=== PATIENT | male | born 1940 | race Caucasian/White ===

== ENCOUNTER 2017-02-25 06:08 | Emergency (ER) | payer MEDICARE ==
[~2017-02-25] VITALS: Ht 177.8 cm; Wt 94.3 kg
[~2017-02-25 06:08] MED LIST: ALLEGRA180 MG PO; AMOXICILLIN500 MG PO; ASPIRIN EC325 MG PO; ASPIRIN EC81 MG PO; COREG3.125 MG PO; GUAIFENESIN-CO118 ML PO; HYDRALAZINE HCL50 MG PO; HYDROCHLOROTH12.5 MG PO; IMDUR30 MG PO; KLOR-CON M2020 MEQ PO; LASIX20 MG PO; LASIX40 MG PO; LIPITOR80 MG PO; NASONEX17 GM NS; NITROGLYCERIN0.4 MG SL; NORVASC10 MG PO; PLAVIX75 MG PO; SEPTRA DS TABL1 EACH PO; SPIRIVA18 MCG IH; VENTOLIN HFA18 GM INH; VITAMIN D2000 UNI1 PO; ZETIA10 MG PO
[2017-02-25] MEDS ORDERED: ELIQUIS5 MG PO (07:41)
[2017-02-25] MEDS ORDERED: ATENOLOL50 MG PO (07:42)
[2017-02-25] MEDS ORDERED: OMEPRAZOLE20 MG PO (07:46)
[2017-02-25] MEDS ORDERED: GLYCOLAX119 GM PO (07:47)
[2017-02-25] MEDS ORDERED: SPIRONOLACTONE25 MG PO (07:49)
[2017-02-25] MEDS ORDERED: MAGNESIUM OXID400 MG PO (07:49)
--- NOTE | 2017-02-25 20:40 | EKG ---
[facility] [address] [facility] [place] [address] Signed Sinus rhythm with frequent and consecutive premature ventricular complexes Incomplete right bundle branch block Prolonged QT Abnormal ECG No previous ECGs available Confirmed by AMILCAR SETH MD ([id number]) on 02/25/2017 8:40:12 PM Electronically Signed By: AMILCAR SETH MD 02/25/172039 PATIENT NAME: TARAH FOWLER KRISHNA Electrocardiogram DATE OF : 42 PHYSICIAN: AMILCAR SETH MD REPORT #: [id number] REPORT IS CONFIDENTIAL AND NOT TO BE RELEASED WITHOUT AUTHORIZATION
== END 2017-02-25 10:00 | disposition short-term general hospital (02) ==
LOC: ED 06:08
DX: I49.5 Sick sinus syndrome (principal); S05.11XA Contusion of eyeball and orbital tissues, right eye, initial encounter; E80.7 Disorder of bilirubin metabolism, unspecified; I25.2 Old myocardial infarction; I48.91 Unspecified atrial fibrillation; Z95.1 Presence of aortocoronary bypass graft; Z99.81 Dependence on supplemental oxygen; Z91.018 Allergy to other foods; Z91.048 Other nonmedicinal substance allergy status; Z79.899 Other long term (current) drug therapy; Z79.82 Long term (current) use of aspirin; X58.XXXA Exposure to other specified factors, initial encounter
CPT/HCPCS: 70450; 71020; 80053; 81001; 84484; 85025; 85610; 85730; 93005; 93010; 99291

== ENCOUNTER 2017-09-18 11:32 | Inpatient (IN) | payer MEDICARE ==
[~2017-09-18] VITALS: Ht 177.8 cm; Wt 89.4 kg
[~2017-09-18 11:32] MED LIST changes: +ALLEGRA ALLERG180 MG PO; -ALLEGRA180 MG PO; +ATENOLOL50 MG PO; +ELIQUIS5 MG PO; +GLYCOLAX119 GM PO; -LASIX20 MG PO; +MAGNESIUM OXID400 MG PO; +OMEPRAZOLE20 MG PO; +SPIRONOLACTONE25 MG PO
--- NOTE | 2017-09-18 12:35 | NUR ---
PATIENT ADMITTED TO CCU VIA WHEELCHAIR FROM DR. HELLER'S OFFICE A DIRECT ADMIT. PT ARRIVED AT 1150. PT HELPED TO UNDRESS INTO GOWN, AND HELPED INTO BED. PT'S ALIREZA IS AT BEDSIDE. PT'S VITALS ASSESSED AND SP02 NOTED TO BE LOW 83% ON ROOM AIR. PT DENIES SHORTNESS OF BREATH. PT REPORTS THAT HE USES OXYGEN AT HOME DURING THE NIGHT. 2 L NC ADDED AT THE TIME AND SP02 IS NOW 95%. LUNGS ARE CLEAR TO AUSCULTATION. DR. ORTEGA N OTIFIED OF PT'S ADMISSION AND ORDER REC'D TO START AN IV AND OBTAIN ORTHOSTATIC VITAL SIGNS. IV STARTED IN LEFT FOREARM WITHOUT DIFFICULTY. ORTHOSTATIC VS SHOWED A BP OF 112/54 (67) HR 69 WHILE RESTING FLAT. UPON STANDING, BP NOTED TO BE 89/49 (59) HR 70. AFTER 3 MINUTES, BP 99/48(56) HR 79. PT DENIES FEELING DIZZY AT THIS TIME BUT NOTES HE FELT DIZZY IN THE DR. HELLER'S OFFICE THIS AM. DR. ORTEGA NOW IN ROOM EVALUATING PATIENT.
[2017-09-18] MEDS ORDERED: ISOSORBIDE DINI30 MG PO (13:01)
[2017-09-18] MEDS ORDERED: METOLAZONE5 MG PO (13:02)
[2017-09-18] MEDS ORDERED: ISOSORBIDE MONO30 MG PO (13:04)
--- NOTE | 2017-09-18 14:08 | NUR ---
DR. ORTEGA AT BEDSIDE TO ASSESS PT FOR POSSIBLE SHINGLES
--- NOTE | 2017-09-18 15:32 | NUR ---
PATIENT'S VESICLES ON HIS RIGHT BUTTOCK ARE VERY SUSPICIOUS FOR SHINGLES, THEREFORE PATIENT PLACED IN AIRBORNE ISOLATION PRECAUTIONS. PATIENT AND UPDATED ON THIS.
--- NOTE | 2017-09-18 15:33 | NUR ---
RECORDS BEING OBTAINED FROM [facility] FROM LAST HOSPITALIZATION, LAST CARDIOLOGY NOTE, WELL LAST ECHO. PATIENT'S MED LIST ALSO REQUESTED FROM [facility].
--- NOTE | 2017-09-18 16:30 | NUR ---
PT VIEWED FROM OBSERVATION WINDOW AND NTED TO BE RESTING COMFOTABLY IN BED.
[2017-09-18] MEDS ORDERED: ATENOLOL100 MG PO (17:59)
--- NOTE | 2017-09-18 18:30 | NUR ---
PT ON AIRBORN PRECAUTIONS AT THIS TIME FOR SHINGLES. 500 ML BOLUS OF NS GIVEN AND NS WITH 40 MEQ OF POTASSIUM RUNNING AT 100 ML/HR. 20G LFA IV SITE WNL. PT SBA TO BEDSIDE URINAL, ASSISTED BACK TO BED, PT STATES HE FEELS INCREASED FATIGUE. SPO2 NOTED TO BE 97% ON 2 L NC, LUNGS CLEAR THROUGHOUT. HR 60-70'S, PACED, BP 80-90'S OVER 40-50. DENIES PAIN OR ANY OTHER COMPLAINTS. HOME MEDICATIONS NOTED ON BEDSIDE TABLE, DENIES USE, ADVISED TO NOT TAKE HOME MEDICATIONS AND TO HAVE ALL MEDICATION DISPENSED BY CARE POVIDERS, PT VERBALIZED UNDERSTANDING AND WAS AGREEABLE, PROVIDER AWARE.
[2017-09-18] MEDS ORDERED: CITRUCEL500 MG PO (19:00)
[2017-09-18] MEDS ORDERED: SENNA-DOCUSATE1 EAC1 PO (19:00)
--- NOTE | 2017-09-18 21:00 | NUR ---
ASSESSMENT COMPLETE. PT ATE PIECE LV CAKE, NO OTHER FOOD SINCE COMING TO CCU, STATES JUST NOT BEEN HUNGRY, "IF I EAT MORE, I WON'T BE ABLE TO SLEEP" HE STATED WHEN OFFERED FOOD. STOOD FOR ORTHOS' PER ORDER, TOLERATED WELL, DID HAVE SOME LIGHT HEADEDNESS WHEN GETTING TO A SITTING POSITION, BUT ONCE HE SAT FOR FEW SECONDS HE STATED IT WENT AWAY. OCCASSIONAL NON-PRODUCTIVE COUGH. OFFERED THE URINAL, LAST URINATED NEAR 1800, HE DENIED THE NEED. ANKLES WITH TRACE EDEMA, HE STATES THAT HE HAS LOST QUITE SOME AMOUNT OF WEIGHT WHEN THEY "GAVE ME THE WATER PILL". FRESH ICE WATER, CALL LIGHT WITHIN REACH. WILL NOTIFY DR ORTEGA WHEN LAB RESULTS COMPLETE.
--- NOTE | 2017-09-18 21:26 | NUR ---
NOTIFIED DR ORTEGA LAB RESULTS WERE AVAILABLE. HE WAS "PUTTING IN ORDERS".
--- NOTE | 2017-09-18 21:47 | NUR ---
ADM KCL PER ORDER. ENCOURAGED PT TO TRY TO URINATE, STOOD AT BEDSIDE, 250 OUT, SAT ON EDGE OF BED FOR FEW MIN, ENCOURAGED TO TAKE A FEW DEEP BREATHS, NO COUGHING AT THIS TIME.
--- NOTE | 2017-09-19 00:30 | NUR ---
WOKE PT FOR ASSESSMENT, PT WANTED TO USE THE URINAL. AFTER SITTING AT THE SIDE OF THE BED, HE THEN STOOD, UNABLE TO START STREAM RIGHT AWAY, ENDED UP VOIDING 175. OFFERED AND ACCEPTED WATER, THEN BACK TO BED. PT STATED, WHILE "I LIKE YOU", I REALLY WOULD RATHER BE HOME. GIVEN WARM BLANKETS, COVERED, WITH CALL LIGHT WITHIN REACH. NO OTHER NEEDS.
--- NOTE | 2017-09-19 00:52 | NUR ---
MD CALLED IN REGUARDS TO PT STATUS. MD ASKED ABOUT VITALS. UPDATED THAT BP HAS BEEN 95-100'S SYSTOLIC. PER MD PT IS DOING WELL ENOUGH TO TRANSFER TO [facility]. MD TO PLACE TRANSFER ORDERS. WILL CALL AND GET A BED FOR THE PATIENT ON [facility].
--- NOTE | 2017-09-19 01:30 | NUR ---
REPORT GIVEN TO ESTHER DASH FROM M/S. PT WAS TRANSFERED TO ROOM [address] ORTEGA. PT WAS NOTIFIED NEAR 0030 THAT HE WAS GOING TO BE TRANSFERED.
--- NOTE | 2017-09-19 02:02 | NUR ---
RECEIVED REPORT FROM CCU NURSE. PT TO FLOOR VIA STRETCHER. AIR BORN PRECAUTIONS.
--- NOTE | 2017-09-19 03:54 | NUR ---
ASSESSMETN CMPLETED. LUNGS CLEAR. TRACE EDEMA BLE. HEART SOUNDS IRREGULAR. 2L NC. PT OOB TO BATHROOM. VOIDED 200 ML. PT IS A/O. SHINGLES ON GLUTEAL APPEARS RED. REPORTS NO PAIN AT THIS TIME. CALL LIGHT WITHIN REACH.
--- NOTE | 2017-09-19 05:46 | NUR ---
CAME TO FLOOR AROUND 0200. PT HAD GOOD NIGHT. AIR BORN PRECAUTIONS D/T SHINGLES ON GLUTEAL AREA. VVS. 200ML OUTPUT THIS SHIFT. ORTHOSTATIS Q SHIFT.
--- NOTE | 2017-09-19 06:49 | NUR ---
PT FOUND ON THE TOILET. PULLD IV OUT OF ARM, TOOK GOWN OFF. CHANGED SHEETS, GOWN, ATTENDS, CLEANED BED AND FLOOR OF BLOOD. RESTARTED IV. PT BACK TO BED. ALARM IN PLACE. CALL LIGHT EDUCATION.
--- NOTE | 2017-09-19 08:50 | NUR ---
PT UPSET ABOUT BREAKFAST BEING DELIVERED COLD. IV POLE NOT PLUGGED IN. LOW BATTERY ALARMING. PLUGGED IV POLE INTO WALL. PATIENT SITTING UP IN BED EATING BREAKFAST NOW. MIRALAX MIXED WITH WARM WATER PER REQUEST.
[2017-09-19] MEDS ORDERED: KONDREMUL2.5 ML/5 M PO (08:55)
--- NOTE | 2017-09-19 12:21 | NUR ---
pt resting with eyes closed. awakened to voice. lunch ordered. this RN administering breathing treatment to patient. at bedside. IV pole plugged in to wall.
--- NOTE | 2017-09-19 12:23 | NUR ---
during assessment of shingles this morning on lower back/midline glutes, they appear to be crusted partially. no weeping seen. covered by patient's underwear.
--- NOTE | 2017-09-19 16:07 | NUR ---
PT ABLE TO TAKE SEVERAL HOUR NAP THIS AFTERNOON. PATIENT AWAKE TAKING BREATHING TREATMENT NOW. WILL ADMINISTER SUPPOSITORY BEFORE EXITING ROOM.
--- NOTE | 2017-09-19 17:40 | NUR ---
PATIENT GIVEN SOAP SUDS ENEMA. UP IN SHOWER NOW TO CLEAN UP. SHOWERING INDEPENDENTLY. NO DIZZINESS OR SOB. WILL CHECK ON PATIENT FREQUENTLY.
--- NOTE | 2017-09-19 17:51 | NUR ---
AIRBORNE ISOLATION FOR SHINGLES. ROOM AIR DURING DAY. 2L 02 WHEN SLEEPING. SBA. SHOWERED AFTER SOAP [place] ENEMA THIS EVENING. VALTREX STARTED FOR SHINGLES. NS + 20KCL @ 65ML/HR. ORTHO STATS Q SHIFT. CARDIAC DIET TOLERATING WELL.
--- NOTE | 2017-09-19 19:25 | NUR ---
IN ROOM FOR REPORT, PT IS AWAKE IN BED AND IS IN THE ROOM. HE DENIES NEEDS AT THIS TIME. CALL LIGHT IS WITHIN REACH.
--- NOTE | 2017-09-19 22:14 | NUR ---
WOKE PT TO GIVE MEDICATIONS, GET VS AND ASSESS. HE DENIES NEEDS AT THIS TIME. CALL LIGHT IS WITHIN REACH AND FRESH WATER IS AT BEDSIDE.
--- NOTE | 2017-09-19 23:24 | NUR ---
PT IS RESTING WITH EYES CLOSED, RESPIRATIONS ARE EVEN AND NONLABORED ON 2 LNC. CALL LIGHT IS WITHIN REACH.
--- NOTE | 2017-09-20 01:04 | NUR ---
PT IS RESTING WITH EYES CLOSED, RESPIRATIONS ARE EVEN AND NONLABORED. CALL LIGHT IS WITHIN REACH.
--- NOTE | 2017-09-20 03:05 | NUR ---
PT CALLED, SAID HE WAS "ALL TANGLED UP WITH TUBES", FOUND PT SITTING SIDE BED, IV TUBING TANGLED, WELL O2, PT HAD GOTTEN UP TO BATHROOM ON HIS OWN, ENCOURAGED PT TO CALL, HE SAID WELL I DIDN'T FALL THIS TIME. SIDE RAILS X 4 UP, FRESH ICE WATER, AND WARM BLANKET PROVIDED. CALL LIGHT WITHIN REACH.
--- NOTE | 2017-09-20 03:48 | NUR ---
IN ROOM TO ASSESS PT, HE IS AWAKE IN BED. IV FLUID IS GETTING LOW ASKED PT TO CALL WHEN IT BEEPS SO HE CAN BE SALINE LOCKED. PROVIDED FRESH WATER, PT DENIES FURTHER NEEDS AND IS IN A BETTER MOOD THIS MORNING, HOPING TO DC.
--- NOTE | 2017-09-20 07:40 | NUR ---
REPORT RECEIVED FROM ESTHER PRINCE. PT DRESSED AND SITTING UP READING BOOK ON THE SOFA. PT STATES HE IS HOPING TO GO HOME FIRST THING.
[2017-09-20] MEDS ORDERED: VALTREX500 MG PO (09:41)
[2017-09-20] MEDS ORDERED: LASIX40 MG PO (09:42)
[2017-09-20] MEDS ORDERED: METOPROLOL TART50 MG PO (09:42)
[2017-09-20] MEDS ORDERED: FUROSEMIDE40 MG PO (09:44)
--- NOTE | 2017-09-20 10:27 | NUR ---
PT CALLED TO SAY HE WAS HAVING SOME CHEST DISCOMFORT. ASSESSED VS AND LISTENED TO HEART. IRREGULAR RYTHM. BP 128/77, HR BOUNCING BETWEEN 60'S AND 124, SATS 93. PT STATES HE NORMALLY TAKES A NITRO. RT IN TO DO EKG. PT STATES THE TIGHTNESS IS LESSENING.
--- NOTE | 2017-09-20 11:26 | NUR ---
VITALS DONE. THIS DECK SPECIALIST REMOVED IV. RN NOTIFIED. PATIENT SITTING UP IN BED DRESSED IN OWN CLOTHES. PATIENTS IN ROOM. NO OTHER NEEDS AT THIS TIME.
[2017-09-20] MEDS ORDERED: KLOR-CON M2020 MEQ PO (11:42)
[2017-09-20] MEDS ORDERED: ISOSORBIDE MONO30 MG PO (12:52)
--- NOTE | 2017-09-20 13:41 | NUR ---
PT DENIES CHEST PAIN OR DISCOMFORT. WALKED IN RILEY WITH BIOMEDICAL FIELD SERVICE ENGINEER. VS STABLE. WHEELED TO CAR IN WHEELCHAIR. IV REMOVED WNL. HERE TO CURTAINS AND DRAPERIES SALESPERSON.
--- NOTE | 2017-09-20 14:14 | EKG ---
[facility] [address] [facility] [place] [address] Signed Atrial fibrillation with premature ventricular or aberrantly conducted complexes Nonspecific intraventricular conduction delay Nonspecific ST and T wave abnormality Prolonged QT Abnormal ECG When compared with ECG of 25-FEB-2017 06:28, Atrial fibrillation has replaced Sinus rhythm Nonspecific T wave abnormality, worse in Lateral leads Confirmed by JUNIOR ORTEGA MD ([id number]) on 09/20/2017 2:14:09 PM Electronically Signed By: JUNIOR ORTEGA MD 09/20/17 1414 PATIENT NAME: TARAH FOWLER Electrocardiogram DATE OF : 42 PHYSICIAN: JUNIOR ORTEGA MD REPORT #: [id number] REPORT IS CONFIDENTIAL AND NOT TO BE RELEASED WITHOUT AUTHORIZATION
== END 2017-09-20 13:15 | disposition home or self-care (01) | DRG 683 ==
LOC: CCU 11:32 → MS 09-19 01:43
PROVIDERS: ADMIT Internal Medicine
DX: N17.9 Acute kidney failure, unspecified (principal); I50.32 Chronic diastolic (congestive) heart failure; J96.11 Chronic respiratory failure with hypoxia; T82.538A Leakage of other cardiac and vascular devices and implants, initial encounter; N18.3 Chronic kidney disease, stage 3 (moderate); R07.89 Other chest pain; I25.10 Atherosclerotic heart disease of native coronary artery without angina pectoris; I48.91 Unspecified atrial fibrillation; I65.29 Occlusion and stenosis of unspecified carotid artery; I73.9 Peripheral vascular disease, unspecified; J44.9 Chronic obstructive pulmonary disease, unspecified; D69.6 Thrombocytopenia, unspecified; E80.6 Other disorders of bilirubin metabolism; B02.9 Zoster without complications; E87.6 Hypokalemia; F17.220 Nicotine dependence, chewing tobacco, uncomplicated; K21.9 Gastro-esophageal reflux disease without esophagitis; E78.5 Hyperlipidemia, unspecified; I95.2 Hypotension due to drugs; T50.1X5A Adverse effect of loop [high-ceiling] diuretics, initial encounter; T46.5X5A Adverse effect of other antihypertensive drugs, initial encounter; D50.0 Iron deficiency anemia secondary to blood loss (chronic); Z88.8 Allergy status to other drugs, medicaments and biological substances; Z79.02 Long term (current) use of antithrombotics/antiplatelets; Z79.82 Long term (current) use of aspirin; Z79.899 Other long term (current) drug therapy; Z95.1 Presence of aortocoronary bypass graft; Z95.2 Presence of prosthetic heart valve; Z95.0 Presence of cardiac pacemaker; Z86.73 Personal history of transient ischemic attack (TIA), and cerebral infarction without residual deficits
CPT/HCPCS: 36415; 76705; 80048; 80053; 80076; 82570; 82607; 82728; 82746; 83540; 83735; 84300; 84466; 84540; 85025; 85045; 93005; 93010; 94640; J7040